=== PATIENT | male | born 1980 | race Caucasian/White ===

== ENCOUNTER 2018-02-03 04:32 | Emergency (ER) | payer SELFPAY ==
[~2018-02-03] VITALS: Ht 180.3 cm; Wt 100.0 kg
[2018-02-03 10:49] VITALS: BP 118/76
== END 2018-02-03 10:51 | disposition home or self-care (01) ==
LOC: ER 04:32
DX: F10.129 Alcohol abuse with intoxication, unspecified (principal)
CPT/HCPCS: 82962; 99283

== ENCOUNTER 2018-05-01 22:43 | Emergency (ER) | payer SELFPAY ==
[~2018-05-01] VITALS: Ht 177.8 cm; Wt 81.8 kg
[2018-05-02] MEDS ORDERED: CETIRIZINE 10MG TABLET PO SCH (00:45)
[2018-05-02] MEDS ORDERED: CHLORDIAZEPOXIDE 25MG CAPSULE PO ONE (01:30)
[2018-05-02] MEDS ORDERED: IBUPROFEN 600MG TABLET PO ONE (01:30)
[2018-05-02] MEDS ORDERED: LORAZEPAM 0.5MG TABLET PO ONE (02:00)
[2018-05-02] MEDS ORDERED: ONDANSETRON 4MG ODT PO ONE (04:15)
[2018-05-02 08:15] VITALS: BP 126/74
== END 2018-05-02 09:21 | disposition home or self-care (01) ==
LOC: ER 22:43
DX: T51.91XA Toxic effect of unspecified alcohol, accidental (unintentional), initial encounter (principal); F17.200 Nicotine dependence, unspecified, uncomplicated; R94.31 Abnormal electrocardiogram [ECG] [EKG]; Y92.89 Other specified places as the place of occurrence of the external cause; Y90.8 Blood alcohol level of 240 mg/100 ml or more; Z59.0 Homelessness
CPT/HCPCS: 36415; 93005; 99285; G0482; Q0162

== ENCOUNTER 2018-05-02 19:25 | Emergency (ER) | payer SELFPAY ==
[~2018-05-02] VITALS: Ht 182.9 cm; Wt 102.0 kg
[2018-05-03] MEDS ORDERED: KETOROLAC 60MG/2ML VIAL IM ONE (02:15)
[2018-05-03 03:55] VITALS: BP 134/75
== END 2018-05-03 04:08 | disposition home or self-care (01) ==
LOC: ER 19:25
DX: L03.114 Cellulitis of left upper limb (principal); F10.229 Alcohol dependence with intoxication, unspecified; R03.0 Elevated blood-pressure reading, without diagnosis of hypertension; F17.200 Nicotine dependence, unspecified, uncomplicated; Y90.9 Presence of alcohol in blood, level not specified
CPT/HCPCS: 73080; 73090; 96372; 99284; J1885; Z7610